=== PATIENT | male | born 1965 | race Caucasian/White ===

== ENCOUNTER 2017-06-15 09:06 | Inpatient (IN) | payer OTHER ==
[2017-06-15 11:06] LABS: ADD MAN DIFF? NO
[2017-06-15 11:08] LABS: BASOPHILS % 0.6 % (0.0-2.0); EOSINOPHILS # 0.3 10^3/ul (0.0-0.5); EOSINOPHILS % 4.5 % (0.0-7.0); HEMATOCRIT 35.3 % (42.0-52.0); HEMOGLOBIN 12.3 g/dl (14.0-18.0); LYMPHOCYTES # 1.7 10^3/ul (0.8-2.9); LYMPHOCYTES % 24.2 % (15.0-51.0); MEAN CORPUSCULAR HEMOGLOBIN 28.4 pg (29.0-33.0); MEAN CORPUSCULAR HGB CONC 34.8 g/dl (32.0-37.0); MEAN CORPUSCULAR VOLUME 81.5 fl (82.0-101.0); MEAN PLATELET VOLUME 9.4 fl (7.4-10.4); MONOCYTE # 0.4 10^3/ul (0.3-0.9); NEUTROPHIL # 4.5 10^3/ul (1.6-7.5); NEUTROPHILS % 64.3 % (39.0-77.0); PLATELET COUNT 225 10^3/UL (140-415); RED BLOOD COUNT 4.33 10^6/ul (4.70-6.10); RED CELL DISTRIBUTION WIDTH 13.2 % (11.5-14.5)
[2017-06-15 11:25] LABS: LACTIC ACID 1.1 mmol/L (0.5-2.0)
[2017-06-15 11:28] LABS: ALANINE AMINOTRANSFERASE 33 IU/L (13-69); ALBUMIN/GLOBULIN RATIO 1.48; ALKALINE PHOSPHATASE 131 IU/L (42-121); ANION GAP 11 (8-16); ASPARTATE AMINO TRANSFERASE 19 IU/L (15-46); BILIRUBIN,INDIRECT 0.2 mg/dl (0-1.1); BILIRUBIN,TOTAL 0.2 mg/dl (0.2-1.3); BLOOD UREA NITROGEN 15 mg/dl (7-20); CALCIUM 9.3 mg/dl (8.4-10.2); CARBON DIOXIDE 29 mmol/L (21-31); CHLORIDE 105 mmol/L (97-110); CREATININE 0.72 mg/dl (0.61-1.24); GLUCOSE 235 mg/dl (70-220); SODIUM 141 mmol/L (135-144); TOTAL PROTEIN 6.7 g/dl (6.1-8.1)
[2017-06-15 11:39] LABS: INR 1.01; PROTIME 13.4 Sec (11.9-14.9)
[2017-06-15 11:40] LABS: PARTIAL THROMBOPLASTIN TIME 27.8 Sec (25.0-35.0)
[2017-06-15 11:44] LABS: TROPONIN-I < 0.012 ng/ml (0.00-0.12)
[2017-06-15 11:57] LABS: ADD UMIC YES; UR ASCORBIC ACID NEGATIVE (NEGATIVE); UR BACTERIA FEW /HPF (NONE SEEN); UR BILIRUBIN (Dip) NEGATIVE (NEGATIVE); UR BLOOD (Dip) 2+ mg/dL (NEGATIVE); UR CLARITY CLEAR (CLEAR); UR COLOR YELLOW (YELLOW); UR GLUCOSE (Dip) 3+ mg/dL (NEGATIVE); UR KETONES (Dip) NEGATIVE (NEGATIVE); UR LEUKOCYTE ESTERASE (Dip) NEGATIVE Leu/ul (NEGATIVE); UR NITRITE (Dip) NEGATIVE (NEGATIVE); UR RBC 2 /HPF (0-5); UR SPECIFIC GRAVITY (Dip) 1.021 (1.003-1.030); UR TOTAL PROTEIN (Dip) 1+ mg/dl (NEGATIVE); UR UROBILINOGEN (Dip) NEGATIVE (NEGATIVE); UR WBC 0 /HPF (0-5)
[2017-06-15] MEDS: PIPER-TAZO 3.375 GM IV (PMX) 100 ML IVPB (12:07)
[2017-06-15 12:23] LABS: LACTIC ACID 1.2 mmol/L (0.5-2.0)
[2017-06-15] MEDS: VANCOMYCIN 1 GM (PMX) 250 ML IVPB (13:50)
[2017-06-15] MEDS ORDERED: ACETAMINOPHEN 325 MG TAB PO (14:00)
[2017-06-15] MEDS ORDERED: ONDANSETRON 4 MG INJ IV (14:00)
[2017-06-15] MEDS: HYPOGLYCEMIA PROTOCOL when Glucose is <70 mg/dL or symptomatic <90 mg/dL. XX (14:00)
[2017-06-15] MEDS ORDERED: ZOLPIDEM 5 MG TAB PO (14:00)
[2017-06-15] MEDS ORDERED: HYDROCODONE/APAP (5/325) TAB PO (14:00)
[2017-06-15] MEDS: DOCUSATE SODIUM 100 MG CAP PO (14:00)
[2017-06-15] MEDS ORDERED: VANCOMYCIN IV PER PHARMACY XX (14:00)
[2017-06-15] MEDS ORDERED: GLUCAGON 1 MG INJ IM (15:00)
[2017-06-15] MEDS ORDERED: GLUCOSE GEL 15 GRAM TUBE PO ×2 (15:00)
[2017-06-15] MEDS ORDERED: GLUCOSE GEL 15 GRAM TUBE BUCCAL (15:00)
[2017-06-15] MEDS ORDERED: DEXTROSE 50% 50 ML SYRINGE IV ×2 (15:00)
[2017-06-15] MEDS: SOD CHLORIDE 0.9% 1,000 ML IV (16:31)
[2017-06-15] MEDS: LEVOFLOXACIN 500MG/D5W (PMX) 100 ML IVPB (16:41)
[2017-06-15] MEDS: VANCOMYCIN 1 GM 250 ML IVPB (17:52)
[2017-06-15] MEDS: INSULIN ASPART [NOVOLOG] 3 ML PEN SC ×2 (17:52→20:57)
[2017-06-15] MEDS: metFORMIN 500 MG TAB PO (18:39)
[2017-06-15] MEDS: ATORVASTATIN 20 MG TAB PO (20:59)
[2017-06-15] MEDS: FAMOTIDINE 20 MG TAB PO (20:59)
[2017-06-15] MEDS: INSULIN GLARGINE [LANtus] 3 ML PEN SC (21:33)
[2017-06-15] MEDS: GABAPENTIN 100 MG CAP PO (21:34)
[2017-06-16] MEDS: DOCUSATE SODIUM 100 MG CAP PO ×2 (02:00→14:18)
[2017-06-16] MEDS: ACCU-CHEK XX (02:00)
[2017-06-16 05:31] LABS: ADD MAN DIFF? NO
[2017-06-16 05:35] LABS: WHITE BLOOD COUNT 8.3 10^3/ul (4.8-10.8)
[2017-06-16 05:35] LABS: BASOPHILS % 0.5 % (0.0-2.0); EOSINOPHILS # 0.3 10^3/ul (0.0-0.5); EOSINOPHILS % 4.1 % (0.0-7.0); HEMOGLOBIN 11.7 g/dl (14.0-18.0); LYMPHOCYTES # 1.8 10^3/ul (0.8-2.9); LYMPHOCYTES % 21.3 % (15.0-51.0); MEAN CORPUSCULAR HEMOGLOBIN 28.3 pg (29.0-33.0); MEAN CORPUSCULAR HGB CONC 34.4 g/dl (32.0-37.0); MEAN CORPUSCULAR VOLUME 82.3 fl (82.0-101.0); MEAN PLATELET VOLUME 9.4 fl (7.4-10.4); MONOCYTE # 0.5 10^3/ul (0.3-0.9); MONOCYTES % 5.9 % (0.0-11.0); NEUTROPHIL # 5.6 10^3/ul (1.6-7.5); NEUTROPHILS % 67.7 % (39.0-77.0); PLATELET COUNT 211 10^3/UL (140-415); RED BLOOD COUNT 4.13 10^6/ul (4.70-6.10); RED CELL DISTRIBUTION WIDTH 13.1 % (11.5-14.5)
[2017-06-16] MEDS: VANCOMYCIN 1.5 GM in SOD CHLORIDE 0.9% 250 ML IVPB ×2 (05:42→18:14)
[2017-06-16 05:54] LABS: ALANINE AMINOTRANSFERASE 33 IU/L (13-69); ALBUMIN 3.5 g/dl (3.3-4.9); ALKALINE PHOSPHATASE 86 IU/L (42-121); ANION GAP 10 (8-16); ASPARTATE AMINO TRANSFERASE 17 IU/L (15-46); BILIRUBIN,INDIRECT 0.2 mg/dl (0-1.1); BILIRUBIN,TOTAL 0.2 mg/dl (0.2-1.3); BLOOD UREA NITROGEN 14 mg/dl (7-20); CALCIUM 9.1 mg/dl (8.4-10.2); CARBON DIOXIDE 27 mmol/L (21-31); CHLORIDE 106 mmol/L (97-110); CHOL/HDL RATIO 5.4 RATIO; CHOLESTEROL 170 mg/dl (100-200); CREATININE 0.76 mg/dl (0.61-1.24); GLUCOSE 152 mg/dl (70-220); HDL CHOLESTEROL 31 mg/dl (28-71); LDL CHOLESTEROL,CALCULATED 89 mg/dl; MAGNESIUM 1.5 mg/dl (1.7-2.5); PHOSPHORUS 3.8 mg/dl (2.5-4.9); POTASSIUM 3.8 mmol/L (3.5-5.1); SODIUM 139 mmol/L (135-144); TOTAL PROTEIN 6.4 g/dl (6.1-8.1); TRIGLYCERIDES 250 mg/dl (0-149)
[2017-06-16 07:19] LABS: HEMOGLOBIN A1C 11.3 % (0-5.9)
[2017-06-16] MEDS: INSULIN ASPART [NOVOLOG] 3 ML PEN SC ×4 (07:33→20:56)
[2017-06-16] MEDS: FAMOTIDINE 20 MG TAB PO ×2 (08:22→20:47)
[2017-06-16] MEDS: metFORMIN 500 MG TAB PO ×2 (08:22→16:43)
[2017-06-16] MEDS: GABAPENTIN 100 MG CAP PO ×2 (08:23→20:47)
[2017-06-16] MEDS: FENOFIBRATE 48 MG TAB PO (08:23)
[2017-06-16] MEDS: ENOXAPARIN 40 MG/0.4 ML SYG SC (08:25)
[2017-06-16] MEDS: INSULIN GLARGINE [LANtus] 3 ML PEN SC ×2 (08:43→20:55)
[2017-06-16] MEDS: LOSARTAN 50 MG TAB PO (09:35)
[2017-06-16] MEDS: LEVOFLOXACIN 500MG/D5W (PMX) 100 ML IVPB (14:18)
[2017-06-16] MEDS: ATORVASTATIN 20 MG TAB PO (20:47)
[2017-06-17] MEDS: DOCUSATE SODIUM 100 MG CAP PO ×2 (01:40→14:58)
[2017-06-17] MEDS: ACCU-CHEK XX (01:40)
[2017-06-17 07:26] LABS: VANCOMYCIN,TROUGH < 5.0 ug/ml (10.0-20.0)
[2017-06-17] MEDS: metFORMIN 500 MG TAB PO ×2 (08:23→17:36)
[2017-06-17] MEDS: INSULIN ASPART [NOVOLOG] 3 ML PEN SC ×4 (08:24→20:23)
[2017-06-17] MEDS: GABAPENTIN 100 MG CAP PO ×2 (08:30→20:17)
[2017-06-17] MEDS: FENOFIBRATE 48 MG TAB PO (08:30)
[2017-06-17] MEDS: LOSARTAN 50 MG TAB PO (08:31)
[2017-06-17] MEDS: FAMOTIDINE 20 MG TAB PO ×2 (08:31→20:17)
[2017-06-17] MEDS: ENOXAPARIN 40 MG/0.4 ML SYG SC (08:32)
[2017-06-17] MEDS: INSULIN GLARGINE [LANtus] 3 ML PEN SC ×2 (08:32→20:22)
[2017-06-17] MEDS: VANCOMYCIN 1.5 GM in SOD CHLORIDE 0.9% 250 ML IVPB (09:55)
[2017-06-17] MEDS: LIDOCAINE 1% (MPF) 5 ML VIAL SC (14:00)
[2017-06-17] MEDS: LEVOFLOXACIN 500MG/D5W (PMX) 100 ML IVPB (14:58)
[2017-06-17] MEDS: VANCOMYCIN 1.75 GM in D5W 500 ML IVPB (17:37)
[2017-06-17] MEDS: ATORVASTATIN 20 MG TAB PO (20:17)
[2017-06-18] MEDS: ACCU-CHEK XX (02:00)
[2017-06-18] MEDS: DOCUSATE SODIUM 100 MG CAP PO ×3 (02:00→14:00)
[2017-06-18] MEDS: VANCOMYCIN 1.75 GM in D5W 500 ML IVPB ×3 (02:15→17:10)
[2017-06-18 05:35] LABS: ADD MAN DIFF? NO
[2017-06-18 05:36] LABS: BASOPHILS % 0.5 % (0.0-2.0); EOSINOPHILS # 0.2 10^3/ul (0.0-0.5); EOSINOPHILS % 2.6 % (0.0-7.0); HEMATOCRIT 35.2 % (42.0-52.0); HEMOGLOBIN 12.1 g/dl (14.0-18.0); LYMPHOCYTES # 1.6 10^3/ul (0.8-2.9); LYMPHOCYTES % 19.2 % (15.0-51.0); MEAN CORPUSCULAR HEMOGLOBIN 28.2 pg (29.0-33.0); MEAN CORPUSCULAR HGB CONC 34.4 g/dl (32.0-37.0); MEAN CORPUSCULAR VOLUME 82.1 fl (82.0-101.0); MEAN PLATELET VOLUME 9.4 fl (7.4-10.4); MONOCYTE # 0.6 10^3/ul (0.3-0.9); MONOCYTES % 6.7 % (0.0-11.0); NEUTROPHIL # 5.9 10^3/ul (1.6-7.5); NEUTROPHILS % 70.6 % (39.0-77.0); PLATELET COUNT 208 10^3/UL (140-415); RED BLOOD COUNT 4.29 10^6/ul (4.70-6.10); RED CELL DISTRIBUTION WIDTH 13.2 % (11.5-14.5)
[2017-06-18 05:36] LABS: WHITE BLOOD COUNT 8.3 10^3/ul (4.8-10.8)
[2017-06-18 07:45] LABS: ANION GAP 16 (8-16); BLOOD UREA NITROGEN 17 mg/dl (7-20); CALCIUM 9.5 mg/dl (8.4-10.2); CARBON DIOXIDE 26 mmol/L (21-31); CHLORIDE 105 mmol/L (97-110); CREATININE 0.84 mg/dl (0.61-1.24); GLUCOSE 146 mg/dl (70-220); MAGNESIUM 1.4 mg/dl (1.7-2.5); POTASSIUM 3.9 mmol/L (3.5-5.1); SODIUM 143 mmol/L (135-144)
[2017-06-18] MEDS: INSULIN ASPART [NOVOLOG] 3 ML PEN SC ×4 (07:51→21:00)
[2017-06-18] MEDS: metFORMIN 500 MG TAB PO ×3 (07:51→17:10)
[2017-06-18] MEDS: FENOFIBRATE 48 MG TAB PO (08:10)
[2017-06-18] MEDS: LOSARTAN 50 MG TAB PO (08:11)
[2017-06-18] MEDS: FAMOTIDINE 20 MG TAB PO ×2 (08:11→20:15)
[2017-06-18] MEDS: GABAPENTIN 100 MG CAP PO ×2 (08:11→20:14)
[2017-06-18] MEDS: INSULIN GLARGINE [LANtus] 3 ML PEN SC ×2 (08:12→21:08)
[2017-06-18] MEDS: ENOXAPARIN 40 MG/0.4 ML SYG SC (08:13)
[2017-06-18] MEDS: LEVOFLOXACIN 500MG/D5W (PMX) 100 ML IVPB (14:18)
[2017-06-18] MEDS: ATORVASTATIN 20 MG TAB PO (20:14)
[2017-06-19 01:43] LABS: VANCOMYCIN,TROUGH 22.7 ug/ml (10.0-20.0)
[2017-06-19] MEDS: VANCOMYCIN 1.75 GM in D5W 500 ML IVPB (02:00)
[2017-06-19] MEDS: DOCUSATE SODIUM 100 MG CAP PO ×2 (02:00→14:00)
[2017-06-19] MEDS: ACCU-CHEK XX (02:00)
[2017-06-19 06:09] LABS: ADD MAN DIFF? NO
[2017-06-19] MEDS: LEVOFLOXACIN 750 MG TABLET PO (06:11)
[2017-06-19 06:16] LABS: BASOPHILS % 0.5 % (0.0-2.0); EOSINOPHILS # 0.3 10^3/ul (0.0-0.5); EOSINOPHILS % 3.3 % (0.0-7.0); HEMATOCRIT 35.6 % (42.0-52.0); HEMOGLOBIN 12.3 g/dl (14.0-18.0); LYMPHOCYTES # 1.6 10^3/ul (0.8-2.9); LYMPHOCYTES % 18.5 % (15.0-51.0); MEAN CORPUSCULAR HEMOGLOBIN 28.4 pg (29.0-33.0); MEAN CORPUSCULAR HGB CONC 34.6 g/dl (32.0-37.0); MEAN CORPUSCULAR VOLUME 82.2 fl (82.0-101.0); MEAN PLATELET VOLUME 9.7 fl (7.4-10.4); MONOCYTE # 0.6 10^3/ul (0.3-0.9); MONOCYTES % 7.5 % (0.0-11.0); NEUTROPHILS % 69.7 % (39.0-77.0); PLATELET COUNT 213 10^3/UL (140-415); RED BLOOD COUNT 4.33 10^6/ul (4.70-6.10)
[2017-06-19 06:16] LABS: WHITE BLOOD COUNT 8.5 10^3/ul (4.8-10.8)
[2017-06-19 06:56] LABS: ANION GAP 16 (8-16); BLOOD UREA NITROGEN 18 mg/dl (7-20); CALCIUM 9.7 mg/dl (8.4-10.2); CARBON DIOXIDE 27 mmol/L (21-31); CHLORIDE 105 mmol/L (97-110); CREATININE 0.93 mg/dl (0.61-1.24); GLUCOSE 141 mg/dl (70-220); POTASSIUM 3.9 mmol/L (3.5-5.1); SODIUM 144 mmol/L (135-144)
[2017-06-19] MEDS: GABAPENTIN 100 MG CAP PO ×2 (08:03→21:16)
[2017-06-19] MEDS: LOSARTAN 50 MG TAB PO (08:04)
[2017-06-19] MEDS: ENOXAPARIN 40 MG/0.4 ML SYG SC (08:04)
[2017-06-19] MEDS: FAMOTIDINE 20 MG TAB PO ×2 (08:04→21:16)
[2017-06-19] MEDS: metFORMIN 500 MG TAB PO ×2 (08:04→17:15)
[2017-06-19] MEDS: FENOFIBRATE 48 MG TAB PO (08:04)
[2017-06-19] MEDS: INSULIN ASPART [NOVOLOG] 3 ML PEN SC ×4 (08:05→21:19)
[2017-06-19] MEDS: INSULIN GLARGINE [LANtus] 3 ML PEN SC ×2 (08:06→21:20)
[2017-06-19] MEDS: VANCOMYCIN 1.5 GM in SOD CHLORIDE 0.9% 250 ML IVPB ×2 (09:38→17:13)
[2017-06-19] MEDS: ATORVASTATIN 20 MG TAB PO (21:16)
[2017-06-20] MEDS: VANCOMYCIN 1.5 GM in SOD CHLORIDE 0.9% 250 ML IVPB ×2 (00:15→07:58)
[2017-06-20] MEDS: DOCUSATE SODIUM 100 MG CAP PO (01:29)
[2017-06-20] MEDS: ACCU-CHEK XX (02:03)
[2017-06-20] MEDS: LEVOFLOXACIN 750 MG TABLET PO (05:50)
[2017-06-20 06:08] LABS: ADD MAN DIFF? NO
[2017-06-20 06:11] LABS: BASOPHILS % 0.5 % (0.0-2.0); EOSINOPHILS # 0.3 10^3/ul (0.0-0.5); EOSINOPHILS % 3.4 % (0.0-7.0); HEMATOCRIT 34.2 % (42.0-52.0); HEMOGLOBIN 11.8 g/dl (14.0-18.0); LYMPHOCYTES # 1.7 10^3/ul (0.8-2.9); MEAN CORPUSCULAR HEMOGLOBIN 28.6 pg (29.0-33.0); MEAN CORPUSCULAR HGB CONC 34.5 g/dl (32.0-37.0); MEAN PLATELET VOLUME 9.9 fl (7.4-10.4); MONOCYTE # 0.6 10^3/ul (0.3-0.9); MONOCYTES % 7.2 % (0.0-11.0); NEUTROPHIL # 5.5 10^3/ul (1.6-7.5); NEUTROPHILS % 67.5 % (39.0-77.0); PLATELET COUNT 180 10^3/UL (140-415); RED BLOOD COUNT 4.12 10^6/ul (4.70-6.10); RED CELL DISTRIBUTION WIDTH 13.3 % (11.5-14.5)
[2017-06-20 06:11] LABS: WHITE BLOOD COUNT 8.2 10^3/ul (4.8-10.8)
[2017-06-20] MEDS: INSULIN ASPART [NOVOLOG] 3 ML PEN SC ×2 (07:51→11:46)
[2017-06-20 07:59] LABS: ANION GAP 16 (8-16); BLOOD UREA NITROGEN 20 mg/dl (7-20); CALCIUM 9.6 mg/dl (8.4-10.2); CARBON DIOXIDE 23 mmol/L (21-31); CHLORIDE 109 mmol/L (97-110); GLUCOSE 157 mg/dl (70-220); POTASSIUM 3.9 mmol/L (3.5-5.1); SODIUM 144 mmol/L (135-144)
[2017-06-20] MEDS: GABAPENTIN 100 MG CAP PO (08:54)
[2017-06-20] MEDS: FAMOTIDINE 20 MG TAB PO (08:55)
[2017-06-20] MEDS: metFORMIN 500 MG TAB PO (08:55)
[2017-06-20] MEDS: LOSARTAN 50 MG TAB PO (08:56)
[2017-06-20] MEDS: FENOFIBRATE 48 MG TAB PO (08:56)
[2017-06-20] MEDS: INSULIN GLARGINE [LANtus] 3 ML PEN SC (08:57)
[2017-06-20] MEDS: ENOXAPARIN 40 MG/0.4 ML SYG SC (08:58)
== END 2017-06-20 13:15 | disposition home health service (06) | DRG 638 ==
LOC: PP2 06-16 18:25 → E/R 09:06 → MS3 11:42
PROC: 02HV33Z Insertion of Infusion Device into Superior Vena Cava, Percutaneous Approach (ICD-10-PCS; principal; 2017-06-17)
DX: E11.69 Type 2 diabetes mellitus with other specified complication (principal); E11.52 Type 2 diabetes mellitus with diabetic peripheral angiopathy with gangrene; M86.9 Osteomyelitis, unspecified; E11.10 Type 2 diabetes mellitus with ketoacidosis without coma; I96 Gangrene, not elsewhere classified; E11.621 Type 2 diabetes mellitus with foot ulcer; L03.115 Cellulitis of right lower limb; E11.42 Type 2 diabetes mellitus with diabetic polyneuropathy; I10 Essential (primary) hypertension; L97.511 Non-pressure chronic ulcer of other part of right foot limited to breakdown of skin; E11.610 Type 2 diabetes mellitus with diabetic neuropathic arthropathy; F17.200 Nicotine dependence, unspecified, uncomplicated; E66.9 Obesity, unspecified; Z68.38 Body mass index [BMI] 38.0-38.9, adult; Z79.4 Long term (current) use of insulin
CPT/HCPCS: 36415; 36569; 71045; 73630; 73718; 76937; 80048; 80053; 80061; 80202; 81001; 82962; 83036; 83605; 83735; 84100; 84484; 85025; 85610; 85730; 87040; 87086; 93005; 96374; 96375; 99285-25

== ENCOUNTER 2017-07-07 13:33 | Emergency (ER) | payer OTHER ==
[2017-07-07 20:15] LABS: ADD MAN DIFF? NO
[2017-07-07 20:23] LABS: WHITE BLOOD COUNT 7.7 10^3/ul (4.8-10.8)
[2017-07-07 20:23] LABS: BASOPHILS % 0.5 % (0.0-2.0); EOSINOPHILS # 0.3 10^3/ul (0.0-0.5); EOSINOPHILS % 4.2 % (0.0-7.0); HEMATOCRIT 28.5 % (42.0-52.0); HEMOGLOBIN 9.8 g/dl (14.0-18.0); LYMPHOCYTES # 1.3 10^3/ul (0.8-2.9); LYMPHOCYTES % 17.4 % (15.0-51.0); MEAN CORPUSCULAR HEMOGLOBIN 28.3 pg (29.0-33.0); MEAN CORPUSCULAR HGB CONC 34.4 g/dl (32.0-37.0); MEAN CORPUSCULAR VOLUME 82.4 fl (82.0-101.0); MONOCYTE # 0.6 10^3/ul (0.3-0.9); MONOCYTES % 7.2 % (0.0-11.0); NEUTROPHIL # 5.4 10^3/ul (1.6-7.5); NEUTROPHILS % 70.2 % (39.0-77.0); PLATELET COUNT 170 10^3/UL (140-415); RED BLOOD COUNT 3.46 10^6/ul (4.70-6.10); RED CELL DISTRIBUTION WIDTH 13.2 % (11.5-14.5)
[2017-07-07 20:46] LABS: ALANINE AMINOTRANSFERASE 33 IU/L (13-69); ALBUMIN/GLOBULIN RATIO 1.66; ALKALINE PHOSPHATASE 104 IU/L (42-121); ANION GAP 18 (8-16); ASPARTATE AMINO TRANSFERASE 20 IU/L (15-46); BILIRUBIN,INDIRECT 0.1 mg/dl (0-1.1); BILIRUBIN,TOTAL 0.1 mg/dl (0.2-1.3); BLOOD UREA NITROGEN 18 mg/dl (7-20); CARBON DIOXIDE 28 mmol/L (21-31); CHLORIDE 103 mmol/L (97-110); CREATININE 1.07 mg/dl (0.61-1.24); GLUCOSE 231 mg/dl (70-220); POTASSIUM 3.7 mmol/L (3.5-5.1); SODIUM 145 mmol/L (135-144); TOTAL PROTEIN 6.4 g/dl (6.1-8.1)
[2017-07-07 22:02] LABS: B-TYPE NATRIURETIC PEPTIDE 549 PG/ML (0-125)
[2017-07-07] MEDS: FUROSEMIDE 40 MG INJ IV (22:45)
== END 2017-07-07 23:13 | disposition home or self-care (01) ==
LOC: E/R 13:33
DX: R60.9 Edema, unspecified (principal); I10 Essential (primary) hypertension; E11.621 Type 2 diabetes mellitus with foot ulcer; F17.210 Nicotine dependence, cigarettes, uncomplicated; L97.409 Non-pressure chronic ulcer of unspecified heel and midfoot with unspecified severity; Z79.4 Long term (current) use of insulin
CPT/HCPCS: 36415; 71045; 73630-LT; 80053; 83880; 85025; 93970; 96374; 99285-25

== ENCOUNTER 2017-11-18 17:22 | Emergency (ER) | payer OTHER ==
[2017-11-18 18:47] LABS: ADD MAN DIFF? NO
[2017-11-18 18:52] LABS: BASOPHILS % 0.6 % (0.0-2.0); EOSINOPHILS % 3.4 % (0.0-7.0); HEMOGLOBIN 10.7 g/dl (14.0-18.0); LYMPHOCYTES # 1.6 10^3/ul (0.8-2.9); MEAN CORPUSCULAR HEMOGLOBIN 29.2 pg (29.0-33.0); MEAN CORPUSCULAR HGB CONC 34.5 g/dl (32.0-37.0); MEAN CORPUSCULAR VOLUME 84.5 fl (82.0-101.0); MEAN PLATELET VOLUME 9.8 fl (7.4-10.4); MONOCYTE # 0.4 10^3/ul (0.3-0.9); MONOCYTES % 5.1 % (0.0-11.0); NEUTROPHIL # 6.1 10^3/ul (1.6-7.5); NEUTROPHILS % 71.4 % (39.0-77.0); PLATELET COUNT 203 10^3/UL (140-415); RED BLOOD COUNT 3.67 10^6/ul (4.70-6.10); RED CELL DISTRIBUTION WIDTH 13.2 % (11.5-14.5)
[2017-11-18 18:52] LABS: WHITE BLOOD COUNT 8.5 10^3/ul (4.8-10.8)
[2017-11-18 18:53] LABS: BASOPHIL # 0.1 10^3/ul (0.0-0.1); EOSINOPHILS # 0.3 10^3/ul (0.0-0.5)
[2017-11-18 18:55] LABS: ADD UMIC YES; UR ASCORBIC ACID NEGATIVE (NEGATIVE); UR BACTERIA FEW /HPF (NONE SEEN); UR BILIRUBIN (Dip) NEGATIVE (NEGATIVE); UR BLOOD (Dip) 2+ mg/dL (NEGATIVE); UR CLARITY CLEAR (CLEAR); UR COLOR STRAW (YELLOW); UR GLUCOSE (Dip) 3+ mg/dL (NEGATIVE); UR KETONES (Dip) NEGATIVE (NEGATIVE); UR LEUKOCYTE ESTERASE (Dip) NEGATIVE Leu/ul (NEGATIVE); UR NITRITE (Dip) NEGATIVE (NEGATIVE); UR RBC 1 /HPF (0-5); UR SPECIFIC GRAVITY (Dip) 1.022 (1.003-1.030); UR TOTAL PROTEIN (Dip) NEGATIVE (NEGATIVE); UR UROBILINOGEN (Dip) NEGATIVE (NEGATIVE); UR WBC 0 /HPF (0-5)
[2017-11-18 19:22] LABS: ALANINE AMINOTRANSFERASE 28 IU/L (13-69); ALBUMIN 4.4 g/dl (3.3-4.9); ALBUMIN/GLOBULIN RATIO 1.57; ALKALINE PHOSPHATASE 149 IU/L (42-121); ANION GAP 16 (8-16); ASPARTATE AMINO TRANSFERASE 20 IU/L (15-46); BILIRUBIN,INDIRECT 0.4 mg/dl (0-1.1); BILIRUBIN,TOTAL 0.4 mg/dl (0.2-1.3); BLOOD UREA NITROGEN 25 mg/dl (7-20); CALCIUM 9.5 mg/dl (8.4-10.2); CARBON DIOXIDE 25 mmol/L (21-31); CHLORIDE 102 mmol/L (97-110); CREATININE 1.26 mg/dl (0.61-1.24); LIPASE 138 U/L (23-300); POTASSIUM 5.5 mmol/L (3.5-5.1); SODIUM 137 mmol/L (135-144); TOTAL PROTEIN 7.2 g/dl (6.1-8.1)
[2017-11-18] MEDS: MAGNESIUM CITRATE 300 ML BTL PO (19:26)
[2017-11-18 19:29] LABS: GLUCOSE 499 mg/dl (70-220)
[2017-11-18] MEDS: SOD CHLORIDE 0.9% 1,000 ML IV (19:44)
[2017-11-18] MEDS: INSULIN LISPRO 100 UNIT/ML VIAL SC (19:52)
== END 2017-11-18 22:03 | disposition home or self-care (01) ==
LOC: FTE 17:22
DX: K59.00 Constipation, unspecified (principal); I10 Essential (primary) hypertension; F17.210 Nicotine dependence, cigarettes, uncomplicated; E11.9 Type 2 diabetes mellitus without complications; Z79.4 Long term (current) use of insulin
CPT/HCPCS: 36415; 74019; 74176; 80053; 81001; 82962; 83690; 85025; 96360; 96372; 99285-25